=== PATIENT | male | born 1955 | race Caucasian/White ===

== ENCOUNTER 2018-05-14 08:35 | Outpatient (CLI) | payer BC ==
--- NOTE | 2018-05-14 13:26 | MRI ---
LEFT SHOULDER MRI WITHOUT IV CONTRAST: HISTORY: A 62-year-old male with a history of left shoulder pain for several months. TECHNIQUE: Multiplanar, multisequence MRI examination of the left shoulder is performed. FINDINGS: Marked AC joint arthrosis changes are noted, with some subchondral cystic changes. There is a comple te full-thickness retracted tear of the supraspinatus tendon with retraction back to near the level o f the glenoid. There is also a full-thickness retracted tear of the infraspinatus tendon, with retra ction also back to near the level of the glenoid. The teres minor tendon appears intact. There is s ome thinning and attenuation of the subscapularis tendon, evidence for a partial thickness tear. The biceps tendon appears to have a somewhat bifid appearance. The intraarticular portion of the biceps tendon appears to be intact but somewhat thinned. Abnormal signal associated with the superior labr um, evidence for a degenerative type SLAP tear with extension particularly posteriorly, to the mid po sterior labrum. There is some fairly prominent fluid within and around the infraspinatus muscle, whi ch shows severe muscle volume loss. This is, in part, a large sentinel cyst, but may well be associa edwin with some acute posttraumatic fluid. There is some fluid dissecting caudally, along the short-he ad of the biceps muscle and tendon, as well as the coracobrachialis muscle. Minimal linear low signa l changes within the joint and dilated subcoracoid recess, evidence for some associated synovitis/cap sulitis. IMPRESSION: 1. Extensive rotator cuff tears, as above. Moderate to severe muscle volume loss of the supraspinat us, infraspinatus, and subscapularis muscles. 2. Bifid appearing biceps tendon. 3. Fairly extensive amount of extracapsular fluid, some dissecting caudally along the coracobrachial is and short-head of the biceps myotendinous region, as well as moderate joint fluid and dilated subc oracoid recess. 4. Marked acromioclavicular joint arthrosis changes. 5. Evidence for a superior labrum anterior and posterior tear. POS: [facility]
--- NOTE | 2018-05-14 13:56 | MRI ---
RIGHT KNEE MRI WITHOUT IV CONTRAST: Date: 05/14/18 HISTORY: 62-year-old male with history of right knee pain for 2 months. TECHNIQUE: Multiplanar, multisequence MRI examination of the right knee is performed. FINDINGS: No significant abnormal joint effusion. There is some physiologic fluid. Small amount of fluid within the popliteal fossa. There is also some fluid along the course of the semimembranosis/myotendinous r egion. Evidence for some semimembranosis bursal fluid with small synovial cyst or ganglion cyst media l to the medial gastrocnemius insertion region. Complex flap tear of the medial meniscus extending fr om the body into the posterior horn. The lateral meniscus demonstrates slight free edge irregularity, having more the appearance of some degenerative fraying. 1.0 x 1.2 cm diameter intraosseous cyst in the proximal fibula, probably an intraosseous degenerative cyst or intraosseous ganglion cyst. Anteri or and posterior cruciate ligaments and collateral ligaments and quadriceps and patellar tendons appe ar intact. No significant acute abnormal marrow signal. IMPRESSION: Complex flap tear medial meniscus. Intraosseous degenerative or ganglion cyst in the proximal fibula. Evidence for some fluid in the popliteal fossa, as well as semimembranosis bursal fluid and small sy novial cyst or ganglion cyst adjacent to the medial gastrocnemius tendon insertion region. POS: [facility]
== END 2018-05-14 08:36 | disposition home or self-care (01) ==
LOC: TBSIIMAG 08:35
PROVIDERS: ATTEND Orthopaedic Surgery
DX: M25.561 Pain in right knee (principal); M25.512 Pain in left shoulder; S83.231A Complex tear of medial meniscus, current injury, right knee, initial encounter; M75.122 Complete rotator cuff tear or rupture of left shoulder, not specified as traumatic; M19.012 Primary osteoarthritis, left shoulder; S43.402A Unspecified sprain of left shoulder joint, initial encounter

== ENCOUNTER 2021-12-29 12:11 | Outpatient (CLI) | payer MEDICARE, OTHER | END 2021-12-29 12:12 | disposition home or self-care (01) | LOC: TBSIIMAG 12:11 | PROVIDERS: ATTEND Surgery | DX: M47.26 Other spondylosis with radiculopathy, lumbar region (principal); M47.27 Other spondylosis with radiculopathy, lumbosacral region; R29.898 Other symptoms and signs involving the musculoskeletal system; I71.4 Abdominal aortic aneurysm, without rupture | CPT/HCPCS: 72110; 72148 ==

== ENCOUNTER 2022-05-01 09:01 | Outpatient (CLI) | payer MEDICARE, OTHER | END 2022-05-01 09:02 | disposition home or self-care (01) | LOC: BICRAD 09:01 | PROVIDERS: ATTEND Family Medicine | DX: J18.9 Pneumonia, unspecified organism (principal); R53.1 Weakness; R06.02 Shortness of breath | CPT/HCPCS: 71046 ==